=== PATIENT | male | born 1955 | race Caucasian/White ===

== ENCOUNTER → 2019-07-01 08:22 | Outpatient (BNVA) | payer OTHER, MEDICARE, SELFPAY | PROVIDERS: Family Provider Nurse Practitioner Family; PCP Nurse Practitioner Family; Visit Provider Anesthesiology | DX: M48.061 Spinal stenosis, lumbar region without neurogenic claudication (principal); M47.16 Other spondylosis with myelopathy, lumbar region; M54.16 Radiculopathy, lumbar region; M50.30 Other cervical disc degeneration, unspecified cervical region; G90.09 Other idiopathic peripheral autonomic neuropathy; G89.29 Other chronic pain; G62.89 Other specified polyneuropathies; G62.9 Polyneuropathy, unspecified; F17.210 Nicotine dependence, cigarettes, uncomplicated; Z79.891 Long term (current) use of opiate analgesic | CPT/HCPCS: 99214 ==

== ENCOUNTER → 2019-08-22 08:06 | Outpatient (BNVA) | payer OTHER, MEDICARE, SELFPAY | PROVIDERS: Family Provider Nurse Practitioner Family; PCP Nurse Practitioner Family; Visit Provider Anesthesiology | DX: G89.29 Other chronic pain (principal); M48.061 Spinal stenosis, lumbar region without neurogenic claudication; M54.16 Radiculopathy, lumbar region; M47.16 Other spondylosis with myelopathy, lumbar region; M50.30 Other cervical disc degeneration, unspecified cervical region; G62.9 Polyneuropathy, unspecified; G90.09 Other idiopathic peripheral autonomic neuropathy; G62.89 Other specified polyneuropathies; F17.210 Nicotine dependence, cigarettes, uncomplicated; Z79.891 Long term (current) use of opiate analgesic | CPT/HCPCS: 99214 ==

== ENCOUNTER 2019-11-12 10:31 | Outpatient (CLI) | payer OTHER, MEDICARE, SELFPAY ==
--- NOTE | 2019-11-12 10:42 | MR_ITS ---
WS: [id number] MRI CERVICAL SPINE HISTORY: CERVICAL RADICULOPATHY COMPARISON: 08/25/2016 Status post anterior cervical fusion with interbody spacer at C6-7. No marrow edema. Moderate disc sp qiana narrowing at C6-7. There is mild disc space narrowing at C5-6. Signal within the cervical cord is normal. Visualized posterior fossa is unremarkable. Craniocervical junction, C1 and C2 relationship, odontoid process and soft tissues are normal. C2-C3: Mild osteophytic ridging. Very mild encroachment upon the ventral thecal sac. C3-C4: Mild osteophytic ridging with moderate bilateral foraminal stenosis. C4-C5: Diffuse annular osteophytic ridging, asymmetric to the LEFT. Mild central stenosis with modera te to severe bilateral foraminal stenosis, greatest on the LEFT. C5-C6: Diffuse annular disc bulging and facet arthritis. There is a small central thecal sac with bro ad-based disc bulging. Moderate to severe central stenosis with effacement of CSF circumferentially. Stenosis due to anterior and posterior arthritic changes. Severe RIGHT and mild LEFT foraminal stenos is. C6-C7: Diffuse annular osteophytic ridging and disc bulging. Mild central stenosis with moderate to s evere bilateral foraminal stenosis. C7-T1: Osteophytic ridging with mild bilateral foraminal narrowing. Paraspinal soft tissue are normal. MR/MR cervical spin wo con* [id number] IMPRESSION: 1. Prior anterior cervical fusion with interbody spacer at C6-7 is intact. 2. Moderate to severe central stenosis at C5-6 with severe RIGHT and mild LEFT foraminal stenosis. 3. Mild central with moderate to severe bilateral foraminal stenosis at C4-5 a nd C6-7. 4. Moderate bilateral foraminal stenosis at C3-4.
== END 2019-11-12 10:32 | disposition home or self-care (01) ==
LOC: RADSHAW 10:39
PROVIDERS: PCP Nurse Practitioner Family; Visit Provider Nurse Practitioner Family
DX: M54.12 Radiculopathy, cervical region (principal); M43.22 Fusion of spine, cervical region; M48.02 Spinal stenosis, cervical region
CPT/HCPCS: 72141

== ENCOUNTER → 2019-12-10 10:37 | Outpatient (BNVA) | payer OTHER, MEDICARE, SELFPAY | PROVIDERS: Family Provider Nurse Practitioner Family; PCP Nurse Practitioner Family; Visit Provider Nurse Practitioner | DX: M54.9 Dorsalgia, unspecified (principal); G62.9 Polyneuropathy, unspecified; F17.210 Nicotine dependence, cigarettes, uncomplicated; Z71.6 Tobacco abuse counseling | CPT/HCPCS: 99213; 99214 ==

== ENCOUNTER 2019-12-17 13:09 | Outpatient (CLI) | payer OTHER, MEDICARE, SELFPAY ==
--- NOTE | 2019-12-17 13:30 | XR_ITS ---
WS: [id number] CERVICAL SPINE FLEXION EXTENSION TECHNIQUE: 3 views of the cervical spine: lateral neutral, flexion and extension views. CLINICAL INFORMATION: Neck pain COMPARISON: None. FINDINGS: Straightening of the normal cervical lordosis on neutral view. Mild spondylitic changes. Osteopenia. Anterior cervical fusion C6-7. Disc space narrowing worse at C5-6. Normal alignment on the flexion views. Normal alignment in extension. Posterior elements are normal. No other significant findings. XR/XR cervical spine fl/ex [id number] IMPRESSION: No instability on flexion-extension
--- NOTE | 2019-12-17 14:15 | CT_ITS ---
WS: [id number] CT CERVICAL SPINE TECHNIQUE: Noncontrast CT of the cervical spine with coronal and sagittal reformatted images. CLINICAL INFORMATION: Neck pain COMPARISON: MRI November 12, 2019 DLP: 2053.[address] scans at [facility] use at least one of these dose optimization techniques: automat ed exposure control; mA and/or kV adjustment per patient size (includes targeted exams where dose is matched to clinical indication); or iterative reconstruction. FINDINGS: Straightening of the normal cervical lordosis. Anterior cervical fusion C6-7. Hardware appears well s eated. No evidence of hardware loosening. Interbody fusion grafts appears solid. Evidence of bony cammy dging beyond the confines of the graft. Disc bulging worse at C5-6. C2-C3: Disc osteophytic ridging. Mild right greater than left bony foraminal narrowing. Spinal canal is patent. Moderate facet arthropathy. C3-C4: Disc osteophytic ridging. Moderate right and mild left bony foraminal narrowing. Moderate face t arthropathy. C4-C5: Disc osteophyte ridging. Moderate bilateral bony foraminal narrowing. Moderate facet arthropat hy. Mild central canal stenosis. C5-C6: Shallow central disc osteophyte protrusion. Mild to moderate central canal stenosis. Severe ri ght and moderate left bony foraminal narrowing. Mild facet arthropathy. Uncovertebral joint hypertrop hy. C6-C7: Anterior interbody cervical fusion. Moderate to severe right and mild left bony foraminal narr owing. Spinal canal is patent. C7-T1: Mild disc osteophyte ridging. Mild central canal stenosis. Mild to moderate left greater than right bony foraminal narrowing. Mild facet arthropathy. Visualized posterior nasopharynx: Normal. Prevertebral soft tissues: Normal. CT/CT cervical spin wo con* [id number] IMPRESSION: 1. Straightening of the normal cervical lordosis with anterior interbody cervi deep fusion C6-C7. Evidence of bony bridging beyond the confines of the graft. H ardware appears well seated. 2. Mild to moderate central canal stenosis C5-C6 due to shallow central disc o steophyte protrusion. Slight contact of the ventral cervical cord. Moderate to severe right greater than left foraminal narrowing. 3. Otherwise multilevel bony foraminal narrowing described above.
== END 2019-12-17 13:10 | disposition home or self-care (01) ==
LOC: RADWPI 13:16
PROVIDERS: Family Provider Nurse Practitioner Family; PCP Nurse Practitioner Family; Visit Provider Licensed Practical Nurse
DX: Z98.1 Arthrodesis status (principal); M48.02 Spinal stenosis, cervical region; M43.22 Fusion of spine, cervical region; M25.78 Osteophyte, vertebrae
CPT/HCPCS: 72040; 72125

== ENCOUNTER → 2020-01-15 09:36 | Outpatient (BNVA) | payer OTHER, MEDICARE, SELFPAY | PROVIDERS: Family Provider Nurse Practitioner Family; PCP Nurse Practitioner Family; Visit Provider Anesthesiology | DX: M48.02 Spinal stenosis, cervical region (principal); M50.30 Other cervical disc degeneration, unspecified cervical region; M43.12 Spondylolisthesis, cervical region; M50.020 Cervical disc disorder with myelopathy, mid-cervical region, unspecified level; F17.210 Nicotine dependence, cigarettes, uncomplicated; Z79.891 Long term (current) use of opiate analgesic | CPT/HCPCS: 62321; J1040 ==

== ENCOUNTER → 2020-02-17 07:58 | Outpatient (BNVA) | payer OTHER, MEDICARE, SELFPAY | PROVIDERS: Family Provider Nurse Practitioner Family; PCP Nurse Practitioner Family; Visit Provider Anesthesiology | DX: G89.29 Other chronic pain (principal); M50.30 Other cervical disc degeneration, unspecified cervical region; M50.020 Cervical disc disorder with myelopathy, mid-cervical region, unspecified level; M43.12 Spondylolisthesis, cervical region; M48.02 Spinal stenosis, cervical region; M48.061 Spinal stenosis, lumbar region without neurogenic claudication; M47.16 Other spondylosis with myelopathy, lumbar region; M54.16 Radiculopathy, lumbar region; G62.9 Polyneuropathy, unspecified; G62.89 Other specified polyneuropathies; G90.09 Other idiopathic peripheral autonomic neuropathy; F17.210 Nicotine dependence, cigarettes, uncomplicated; Z98.1 Arthrodesis status; Z79.891 Long term (current) use of opiate analgesic | CPT/HCPCS: 99214 ==

== ENCOUNTER → 2020-03-04 09:02 | Outpatient (BNVA) | payer OTHER, MEDICARE, SELFPAY | PROVIDERS: Family Provider Nurse Practitioner Family; PCP Nurse Practitioner Family; Visit Provider Anesthesiology | DX: M50.30 Other cervical disc degeneration, unspecified cervical region (principal); M50.020 Cervical disc disorder with myelopathy, mid-cervical region, unspecified level; M48.02 Spinal stenosis, cervical region; M43.12 Spondylolisthesis, cervical region; F17.210 Nicotine dependence, cigarettes, uncomplicated; Z79.891 Long term (current) use of opiate analgesic | CPT/HCPCS: 62321; J1040 ==

== ENCOUNTER 2020-03-09 20:00 | Outpatient (CLI) | payer OTHER, MEDICARE, SELFPAY | END 2020-03-09 20:01 | disposition home or self-care (01) | LOC: SLEEP 03-10 09:27 | PROVIDERS: Family Provider Nurse Practitioner Family; PCP Nurse Practitioner Family; Visit Provider Nurse Practitioner Family | DX: G47.33 Obstructive sleep apnea (adult) (pediatric) (principal) | CPT/HCPCS: 95811 ==

== ENCOUNTER → 2020-04-20 07:52 | Outpatient (BNVA) | payer OTHER, MEDICARE, SELFPAY | PROVIDERS: Family Provider Nurse Practitioner Family; PCP Nurse Practitioner Family; Visit Provider Anesthesiology | DX: G89.29 Other chronic pain (principal); M47.16 Other spondylosis with myelopathy, lumbar region; M54.16 Radiculopathy, lumbar region; M48.061 Spinal stenosis, lumbar region without neurogenic claudication; M54.9 Dorsalgia, unspecified; M50.30 Other cervical disc degeneration, unspecified cervical region; M50.020 Cervical disc disorder with myelopathy, mid-cervical region, unspecified level; M43.12 Spondylolisthesis, cervical region; M48.02 Spinal stenosis, cervical region; G90.09 Other idiopathic peripheral autonomic neuropathy; Z79.891 Long term (current) use of opiate analgesic | CPT/HCPCS: 99214 ==

== ENCOUNTER → 2020-05-20 10:02 | Outpatient (BNVA) | payer OTHER, MEDICARE, SELFPAY | PROVIDERS: Family Provider Nurse Practitioner Family; PCP Nurse Practitioner Family; Visit Provider Anesthesiology | DX: G89.29 Other chronic pain (principal); M50.30 Other cervical disc degeneration, unspecified cervical region; M48.02 Spinal stenosis, cervical region; F17.210 Nicotine dependence, cigarettes, uncomplicated; Z98.1 Arthrodesis status; Z79.891 Long term (current) use of opiate analgesic | CPT/HCPCS: 62321; J1040 ==

== ENCOUNTER 2020-05-25 20:00 | Outpatient (CLI) | payer OTHER, MEDICARE, SELFPAY | END 2020-05-25 20:01 | disposition home or self-care (01) | LOC: SLEEP 05-26 10:08 | PROVIDERS: Family Provider Nurse Practitioner Family; PCP Nurse Practitioner Family; Visit Provider Nurse Practitioner Family | DX: G47.33 Obstructive sleep apnea (adult) (pediatric) (principal) | CPT/HCPCS: 95811 ==

== ENCOUNTER → 2020-06-25 09:38 | Outpatient (BNVA) | payer OTHER, MEDICARE, SELFPAY | PROVIDERS: Family Provider Nurse Practitioner Family; PCP Nurse Practitioner Family; Visit Provider Anesthesiology | DX: G89.29 Other chronic pain (principal); M54.9 Dorsalgia, unspecified; M47.16 Other spondylosis with myelopathy, lumbar region; M54.16 Radiculopathy, lumbar region; M50.30 Other cervical disc degeneration, unspecified cervical region; M48.061 Spinal stenosis, lumbar region without neurogenic claudication; M50.020 Cervical disc disorder with myelopathy, mid-cervical region, unspecified level; M48.02 Spinal stenosis, cervical region; M43.12 Spondylolisthesis, cervical region; G62.9 Polyneuropathy, unspecified; F17.200 Nicotine dependence, unspecified, uncomplicated; Z79.891 Long term (current) use of opiate analgesic | CPT/HCPCS: 99214 ==

== ENCOUNTER → 2020-08-17 09:02 | Outpatient (BNVA) | payer OTHER, MEDICARE, SELFPAY | PROVIDERS: Family Provider Nurse Practitioner Family; PCP Nurse Practitioner Family; Visit Provider Anesthesiology | DX: G89.29 Other chronic pain (principal); M47.16 Other spondylosis with myelopathy, lumbar region; M54.16 Radiculopathy, lumbar region; M48.061 Spinal stenosis, lumbar region without neurogenic claudication; G62.9 Polyneuropathy, unspecified; M54.9 Dorsalgia, unspecified; M54.2 Cervicalgia; G90.09 Other idiopathic peripheral autonomic neuropathy; F17.210 Nicotine dependence, cigarettes, uncomplicated; Z79.891 Long term (current) use of opiate analgesic | CPT/HCPCS: 99214 ==

== ENCOUNTER 2020-09-24 09:58 | Outpatient (CLI) | payer OTHER, MEDICARE, SELFPAY ==
[2020-09-24 10:27] LABS: ABG PH Result 7.38 (7.35-7.45); Arterial Blood Gas Hematocrit 44.4 % (42-52); Base Excess ABG 10.2 mmol/L (-2.0-2.0); Blood Gas Allen Test Pos; Blood Gas Sample Type Arterial; Carboxyhemoglobin 7.2 %THgb (0.4-20.1); HCO3 ABG 38.3 mmol/L (22-26); HGB O2 Sat 79.3 % (95-100); Ionized Calcium Level - ABG 1.2 mmol/L (1.1-1.4); Methemoglobin 0.9 % (0.4-1.5); Oxygen Saturation ABG 86.2; PO2 ABG 49.4 mmHg (80.0-100.0); Potassium Level - ABG 3.9 mmol/L (3.5-5.0); Total Hemoglobin 14.5 g/dL (14-18)
[2020-09-24 10:28] LABS: Alveolar-Arterial Oxygen Gradi 9.3 mmHg (5-10); Blood Gas Operator Identificat MONRO; Blood Gas Sample Site Radial, left; Oxygen Device NC
[2020-09-24 10:30] LABS: ABG PCO2 65.5 mmHg (35-45)
--- NOTE | 2020-09-24 10:57 | PC.RESP ---
This RT called critical to Lorie Wilson, RONAN. Lorie stated that pt was okay to leave. Patient was in no resp dx, patient was talking in full sentences and stated that he felt fine and was wanting to leave.
== END 2020-09-24 09:59 | disposition home or self-care (01) ==
LOC: LAB 10:06
PROVIDERS: PCP Nurse Practitioner Family; Visit Provider Nurse Practitioner Family
DX: R89.9 Unspecified abnormal finding in specimens from other organs, systems and tissues (principal)
CPT/HCPCS: 36600; 80051; 82330; 82805

== ENCOUNTER → 2020-10-21 08:07 | Outpatient (BNVA) | payer OTHER, MEDICARE, SELFPAY | PROVIDERS: PCP Nurse Practitioner Family; Visit Provider Anesthesiology | DX: G89.29 Other chronic pain (principal); G62.89 Other specified polyneuropathies; M54.9 Dorsalgia, unspecified; M47.16 Other spondylosis with myelopathy, lumbar region; M48.061 Spinal stenosis, lumbar region without neurogenic claudication; M54.16 Radiculopathy, lumbar region; M50.30 Other cervical disc degeneration, unspecified cervical region; M50.020 Cervical disc disorder with myelopathy, mid-cervical region, unspecified level; M48.02 Spinal stenosis, cervical region; F17.210 Nicotine dependence, cigarettes, uncomplicated; Z98.1 Arthrodesis status; Z79.891 Long term (current) use of opiate analgesic | CPT/HCPCS: 99214 ==

== ENCOUNTER → 2020-11-23 11:36 | Outpatient (BNVA) | payer OTHER, MEDICARE, SELFPAY | PROVIDERS: PCP Nurse Practitioner Family; Visit Provider Internal Medicine Pulmonary Disease | DX: J44.9 Chronic obstructive pulmonary disease, unspecified (principal); Z20.822 Contact with and (suspected) exposure to COVID-19 | CPT/HCPCS: 87635 ==

== ENCOUNTER 2020-11-29 13:13 | Outpatient (CLI) | payer OTHER, MEDICARE, SELFPAY ==
--- NOTE | 2020-11-29 13:20 | CT_ITS ---
WS: [id number] LDCT LUNG CANCER SCREENING HISTORY: NICOTINE Dependence, cigarettes TECHNIQUE: Axial imaging performed from the apices to 1 cm below the costophrenic angles. Coronal and sagittal reformats are submitted with axial MIP series. All CT scans at [facility] use at least one of these dose optimization techniques: automated exposure control; mA and/or kV adjustment per patient size (includes targeted exams where dose is matched to clinical indication); or iterativ e reconstruction. DLP: 58.54 mGy.cm DIvol: 1.58 mGy COMPARISON: 03/16/2018 Diagnostic quality: Satisfactory Lung Nodules: Stable 3 mm nodule RIGHT upper lobe, image 64 of series 3. Partially calcified 18 mm ma ss in the LEFT lower lobe is stable also since 03/16/2018. No endobronchial lesions. Small amount of d ebris in the distal LEFT main bronchus. Lungs: Hyperinflated lungs with chronic interstitial thickening. Heart: Prior CABG and median sternotomy. Other findings: Small hiatal hernia. Moderate atherosclerosis aorta. CT/CT lung screening [id number] IMPRESSION: LUNG-RADS: 2-Benign Appearance or Behavior FOLLOW UP: 12 Month: Continue annual screening with LDCT OTHER FINDINGS (S MODIFIER): None.
--- NOTE | 2020-11-29 14:40 | PFTS_ITS ---
Date of Study:11/29/20 Date of Dictation: MECHANICS: Forced vital capacity (FVC) is reduced. Forced expiratory volume in one second (FEV1) is reduced. FEV1/FVC is reduced. FLOW VOLUME LOOP: Reduced flow at all lung volumes with significant scooping. LUNG VOLUMES: Total lung capacity (TLC) is normal. Residual volume (RV) is increased. DIFFUSING CAPACITY FOR CARBON MONOXIDE: Moderately reduced. INTERPRETATION: The pulmonary function tests are consistent with very severe airflow obstruction. There is a significant postbronchodilator response. Lung volumes are consistent with air trapping. Gas exchange (DLCO) is moderately reduced. MTDD
== END 2020-11-29 13:14 | disposition home or self-care (01) ==
LOC: RAD 13:17
PROVIDERS: PCP Nurse Practitioner Family; Visit Provider Internal Medicine Pulmonary Disease
DX: Z12.2 Encounter for screening for malignant neoplasm of respiratory organs (principal); F17.210 Nicotine dependence, cigarettes, uncomplicated; J44.9 Chronic obstructive pulmonary disease, unspecified; K44.9 Diaphragmatic hernia without obstruction or gangrene; I70.0 Atherosclerosis of aorta
CPT/HCPCS: 71271; 94060; 94618; 94726; 94729; J7611

== ENCOUNTER → 2020-12-17 09:02 | Outpatient (BNVA) | payer OTHER, MEDICARE, SELFPAY | PROVIDERS: PCP Nurse Practitioner Family; Visit Provider Anesthesiology | DX: G89.29 Other chronic pain (principal); M47.16 Other spondylosis with myelopathy, lumbar region; M54.16 Radiculopathy, lumbar region; M48.061 Spinal stenosis, lumbar region without neurogenic claudication; M50.30 Other cervical disc degeneration, unspecified cervical region; M50.020 Cervical disc disorder with myelopathy, mid-cervical region, unspecified level; M48.02 Spinal stenosis, cervical region; M43.12 Spondylolisthesis, cervical region; G62.9 Polyneuropathy, unspecified; F17.210 Nicotine dependence, cigarettes, uncomplicated; Z98.1 Arthrodesis status; Z79.891 Long term (current) use of opiate analgesic | CPT/HCPCS: 99214 ==

== ENCOUNTER → 2021-01-20 08:51 | Outpatient (BNVA) | payer OTHER, MEDICARE, SELFPAY | PROVIDERS: PCP Nurse Practitioner Family; Visit Provider Anesthesiology | DX: G89.29 Other chronic pain (principal); M50.30 Other cervical disc degeneration, unspecified cervical region; M50.020 Cervical disc disorder with myelopathy, mid-cervical region, unspecified level; F17.210 Nicotine dependence, cigarettes, uncomplicated; Z79.891 Long term (current) use of opiate analgesic | CPT/HCPCS: 62321; J1040 ==

== ENCOUNTER → 2021-02-17 07:53 | Outpatient (BNVA) | payer OTHER, MEDICARE, SELFPAY | PROVIDERS: PCP Nurse Practitioner Family; Visit Provider Anesthesiology | DX: G89.29 Other chronic pain (principal); M47.16 Other spondylosis with myelopathy, lumbar region; M54.16 Radiculopathy, lumbar region; M48.061 Spinal stenosis, lumbar region without neurogenic claudication; M50.30 Other cervical disc degeneration, unspecified cervical region; M50.020 Cervical disc disorder with myelopathy, mid-cervical region, unspecified level; M48.02 Spinal stenosis, cervical region; G62.9 Polyneuropathy, unspecified; F17.210 Nicotine dependence, cigarettes, uncomplicated; Z98.1 Arthrodesis status; Z79.891 Long term (current) use of opiate analgesic | CPT/HCPCS: 99214 ==

== ENCOUNTER 2021-03-10 08:38 | Outpatient (RCR) | payer OTHER, MEDICARE, SELFPAY | END 2021-03-10 23:59 | disposition home or self-care (01) | LOC: PULRHB 08:38 | PROVIDERS: PCP Nurse Practitioner Family; Visit Provider Internal Medicine Pulmonary Disease | DX: J96.10 Chronic respiratory failure, unspecified whether with hypoxia or hypercapnia (principal) | CPT/HCPCS: 94618 ==

== ENCOUNTER 2021-03-11 06:00 | Outpatient (RCR) | payer OTHER, MEDICARE, SELFPAY | END 2021-04-10 23:59 | disposition home or self-care (01) | LOC: PULRHB 06:00 | PROVIDERS: PCP Nurse Practitioner Family; Visit Provider Internal Medicine Pulmonary Disease | DX: J96.10 Chronic respiratory failure, unspecified whether with hypoxia or hypercapnia (principal) | CPT/HCPCS: G0237; G0238; G0239 ==

== ENCOUNTER 2021-04-11 06:00 | Outpatient (RCR) | payer OTHER, MEDICARE, SELFPAY | END 2021-05-10 23:59 | disposition home or self-care (01) | LOC: PULRHB 06:00 | PROVIDERS: PCP Nurse Practitioner Family; Visit Provider Internal Medicine Pulmonary Disease | DX: J96.10 Chronic respiratory failure, unspecified whether with hypoxia or hypercapnia (principal) | CPT/HCPCS: G0237; G0238 ==

== ENCOUNTER → 2021-04-19 08:21 | Outpatient (BNVA) | payer OTHER, MEDICARE, SELFPAY | PROVIDERS: PCP Nurse Practitioner Family; Visit Provider Anesthesiology | DX: G89.29 Other chronic pain (principal); M47.16 Other spondylosis with myelopathy, lumbar region; M54.16 Radiculopathy, lumbar region; M48.061 Spinal stenosis, lumbar region without neurogenic claudication; M50.30 Other cervical disc degeneration, unspecified cervical region; M50.020 Cervical disc disorder with myelopathy, mid-cervical region, unspecified level; M48.02 Spinal stenosis, cervical region; M43.12 Spondylolisthesis, cervical region; G62.9 Polyneuropathy, unspecified; F17.210 Nicotine dependence, cigarettes, uncomplicated; Z98.1 Arthrodesis status; Z79.891 Long term (current) use of opiate analgesic; Z71.6 Tobacco abuse counseling | CPT/HCPCS: 99214 ==

== ENCOUNTER → 2021-06-08 08:10 | Outpatient (BNVA) | payer MEDICARE, SELFPAY | PROVIDERS: PCP Nurse Practitioner Family; Visit Provider Anesthesiology | DX: G89.29 Other chronic pain (principal); M47.16 Other spondylosis with myelopathy, lumbar region; M54.16 Radiculopathy, lumbar region; M48.061 Spinal stenosis, lumbar region without neurogenic claudication; M50.30 Other cervical disc degeneration, unspecified cervical region; M50.020 Cervical disc disorder with myelopathy, mid-cervical region, unspecified level; M48.02 Spinal stenosis, cervical region; M43.12 Spondylolisthesis, cervical region; Z98.1 Arthrodesis status; G62.9 Polyneuropathy, unspecified; G62.89 Other specified polyneuropathies; F17.200 Nicotine dependence, unspecified, uncomplicated; Z79.891 Long term (current) use of opiate analgesic | CPT/HCPCS: 99213 ==

== ENCOUNTER 2022-03-16 09:55 | Outpatient (CLI) | payer BC, MEDICARE, SELFPAY ==
--- NOTE | 2022-03-16 11:45 | USCV_ITS ---
Tanner Ross Age: 67 Gender: M : 1955 Exam Date: 03/16/2022 11:19 Ordering Phys: Lico Stanley M.D ([email or web address]) Technologist: ARIS Exam Location: [facility] [place] Indication: SHORTNESS OF BREATH BP: 124 / 60 HR: 69 Rhythm: Sinus Technical Quality: Adequate MEASUREMENTS (Male / Female) Normal Values 2D ECHO LV Diastolic Diameter PLAX 4.6 cm 4.2 - 5.9 / 3.9 - 5.3 cm LV Systolic Diameter PLAX 2.7 cm IVS Diastolic Thickness 1.1 cm 0.6 - 1.0 / 0.6 - 0.9 cm IVS Systolic Thickness 2.1 cm LVPW Diastolic Thickness 1.7 cm 0.6 - 1.0 / 0.6 - 0.9 cm LVPW Systolic Thickness 1.9 cm LVOT Diameter 2.0 cm LV Ejection Fraction 2D Teich 73.1 % LV Ejection Fraction MOD 2C 66.5 % LV Ejection Fraction 2C AL 66.4 % LA Diameter 3.9 cm LA Width 2.9 cm LA Height 4.4 cm RA Width 3.4 cm RA Height 3.9 cm Aorta at Sinotubular Diameter 2.0 cm IVC Diameter 2.1 cm M-MODE Aortic Annulus Diameter 3.1 cm LA Ao Ratio MM 1.1 MV E Point Septal Separation 0.6 cm DOPPLER AV Peak Velocity 166.7 cm/s LVOT Peak Velocity 120.0 cm/s AV Area Cont Eq vti 2.1 cm squared AV Area Cont Eq pk 2.4 cm squared MV Peak Velocity 130.0 cm/s MV Area PHT 2.3 cm squared Mitral E to A Ratio 0.9 MV E' Velocity 56.0 cm/s Mitral E to MV E' Ratio 12.6 Mitral E to LV E' Lateral Ratio 12.1 Mitral E to LV E' Septal Ratio 13.2 TR Peak Velocity 234.2 cm/s TR Peak Gradient 21.9 mmHg TR Mean Velocity 183.5 cm/s TR Mean Gradient 14.4 mmHg TR Velocity Time Integral 65.8 cm TV Peak E Velocity 45.0 cm/s Right Atrial Pressure 3.0 mmHg Pulmonary Artery Systolic Pressu 24.9 mmHg PV Peak Velocity 131.0 cm/s RV Acceleration Time 0.1 s RV Ejection Time 0.3 s RV AcT/ET 0.3 FINDINGS Left Ventricle Left ventricle is normal in size. LV systolic function is normal with EF of 55 to 60%. No regional wall motion abnormalities are seen. Grade 1 diastolic dysfunction Right Ventricle Normal in size and function with Right Atrium Normal in size Left Atrium Normal in size Mitral Valve Structurally normal mitral valve. Trace mitral regurgitation. No significant stenosis. Aortic Valve Aortic valve is grossly normal. No significant stenosis. Mild aortic regurgitation. Tricuspid Valve Trace tricuspid regurgitation. Insufficient TR jet to calculate RVSP. Pulmonic Valve Not well-visualized Pericardium Grossly normal Aorta Normal in size IVC Appears to be normal CONCLUSIONS LV systolic unction is normal with EF of 55 to 60%. Grade 1 diastolic dysfunction Trace mitral regurgitation Mild aortic regurgitation Trace tricuspid regurgitation Compared to prior echocardiogram from 03/17/2018, patient has mild aortic regurgitation. Lico Stanley MD (Electronically Signed) Final Date: 19 March 2022 13:06 S
--- NOTE | 2022-03-16 13:00 | USCV_ITS ---
Tanner Ross Age: 67 Gender: M : 1955 Exam Date: 03/16/2022 10:29 Ordering Phys: Lico Stanley M.D ([email or web address]) Technologist: EYAD [place]am [place] [facility] [place] Indication: Carotid stenosis and occlusion Risk Factors: Previous Vascular Surgery: Right Brachial BP: / Left Brachial BP: / Right Left Velocity (cm/s) Spectral Plaque Velocity (cm/s) Spectral Plaque Syst/Diast Broadening Syst/Diast Broadening 42.70/ 5.80 Prox CCA 97.30 / 26.30 34.60/ 4.70 Mid CCA 106.50/ 32.90 31.50/ 5.00 Distal CCA 84.90 / 27.60 43.20/ 1.00 Prox ICA 72.80 / 26.50 / Mid ICA 76.10 / 26.50 / Distal ICA 93.70 / 39.70 150.70 ECA 89.30 1.01 ICA/CCA 0.88 Vertebral 61.70/ 26.50 cm/s 63.90/ 18.70 cm/s Subclavian 103.9 135.2 0 0 FINDINGS comparison 2017 CONCLUSIONS Chronic Right ICA occlusion unchanged Left ICA stenosis <50%. Prior Left CEA. Normal antegrade Doppler flow noted in the right vertebral artery. Normal antegrade Doppler flow noted in the left vertebral artery. Paxton Bo MD (Electronically Signed) Final Date: 16 March 2022 15:18 S
== END 2022-03-16 09:56 | disposition home or self-care (01) ==
PROVIDERS: PCP Nurse Practitioner Family; Visit Provider Internal Medicine
DX: I65.23 Occlusion and stenosis of bilateral carotid arteries (principal); R06.02 Shortness of breath; I08.3 Combined rheumatic disorders of mitral, aortic and tricuspid valves
CPT/HCPCS: 93306; 93880

== ENCOUNTER 2022-03-16 09:55 | Outpatient (CLI) | payer BC, MEDICARE, SELFPAY ==
--- NOTE | 2022-03-16 10:13 | CT_ITS ---
WS: [id number] LDCT LUNG CANCER SCREENING TECHNIQUE: Noncontrast CT of the chest with coronal and sagittal reformatted images. CLINICAL INFORMATION: NICOTINE DEPENDENCE,CIGARETTES COMPARISON: CT November 29, 2020 DLP: 85.49 mGy.cm DIvol: Mean CTDIvol: 1.60 (mGy) All CT scans at [facility] use at least one of these dose optimization techniques: automat ed exposure control; mA and/or kV adjustment per patient size (includes targeted exams where dose is matched to clinical indication); or iterative reconstruction. FINDINGS: Stable noncalcified nodule RIGHT upper lobe measuring 3 mm. Small hazy noncalcified nodule LEFT lung apex measuring 5 mm unchanged and better seen today. Additional tiny RIGHT upper lobe nodul e. Postoperative changes lower cervical spine. Calcified granuloma LEFT lower lobe. Normal caliber th oracic aorta. No mediastinal or hilar lymphadenopathy. No axillary lymphadenopathy. Aneurysmal upper abdominal aorta partially visualized measuring 3.8 x 3.7 cm AP by transverse. This a ppears unchanged from previous. This can be further evaluated with CTa abdomen pelvis. Hyperinflation. Chronic emphysematous changes. Prior CABG with sternotomy. Small esophageal hiatal he rnia. Aortic calcification. Cholecystectomy. RIGHT upper pole renal cyst partially visualized. CT/CT lung screening [id number] IMPRESSION: Aneurysmal upper abdominal aorta. Recommend further evaluation with CTa abdomen pelvis. LUNG-RADS: 2S-Benign Appearance or Behavior with Significant Findings FOLLOW UP: 12 Month: Continue annual screening with LDCT
== END 2022-03-16 09:56 | disposition home or self-care (01) ==
PROVIDERS: PCP Nurse Practitioner Family; Visit Provider Registered Nurse
DX: Z12.2 Encounter for screening for malignant neoplasm of respiratory organs (principal); F17.210 Nicotine dependence, cigarettes, uncomplicated
CPT/HCPCS: 71271